=== PATIENT | female | born 1980 | race Two or more races ===

== ENCOUNTER 2018-05-26 08:18 | Outpatient (CLI) | payer OTHER | END 2018-05-26 08:28 | disposition home or self-care (01) | LOC: SONOGRAMA 08:18 | DX: K80.20 Calculus of gallbladder without cholecystitis without obstruction (principal); R10.2 Pelvic and perineal pain ==

== ENCOUNTER 2018-09-22 09:01 | Outpatient (CLI) | payer OTHER | END 2018-09-22 09:04 | disposition home or self-care (01) | LOC: MAMO-SONO 09:01 | DX: N60.11 Diffuse cystic mastopathy of right breast (principal); N60.12 Diffuse cystic mastopathy of left breast; Z80.3 Family history of malignant neoplasm of breast ==

== ENCOUNTER 2018-11-24 11:22 | Outpatient (CLI) | payer OTHER | END 2018-11-24 11:24 | disposition home or self-care (01) | LOC: SONOGRAMA 11:22 | DX: R10.9 Unspecified abdominal pain (principal) ==

== ENCOUNTER 2018-11-25 16:38 | Emergency (ER) | payer OTHER ==
[~2018-11-25] VITALS: Ht 165.1 cm; Wt 49.9 kg
== END 2018-11-26 10:50 | disposition home or self-care (01) ==
LOC: ER 16:38
DX: J18.0 Bronchopneumonia, unspecified organism (principal); R50.9 Fever, unspecified

== ENCOUNTER → 2018-12-04 08:27 | Outpatient (CLI) | payer OTHER | END | disposition home or self-care (01) | LOC: LAB 08:27 | DX: E55.9 Vitamin D deficiency, unspecified (principal); E13.29 Other specified diabetes mellitus with other diabetic kidney complication; J15.9 Unspecified bacterial pneumonia; I13.0 Hypertensive heart and chronic kidney disease with heart failure and stage 1 through stage 4 chronic kidney disease, or unspecified chronic kidney disease; E13.22 Other specified diabetes mellitus with diabetic chronic kidney disease ==

== ENCOUNTER 2022-12-11 16:16 | Inpatient (IN) | payer OTHER ==
[~2022-12-11] VITALS: Ht 170.2 cm; Wt 56.7 kg
[2022-12-11] MEDS ORDERED: LO LOESTRIN FE1 EACH PO (16:22)
--- NOTE | 2022-12-11 16:25 | NUR ---
SE RECIBE PTE FEMENINA DE 42 ANOS ALERTA Y ORIENTADA X3 QUIEN REFIER EMALESTAR GENERAL. SE MONITOREAN S/V Y SE UBICA EN FT.
--- NOTE | 2022-12-11 17:44 | NUR ---
PACIENTE EVALUADA POR DR. HILARIO QUIEN ORDENA TRATAMIENTO. SE ORIENTA PACIENTE SOBRE TRATAMIENTO, SE DIONNE MUESTRAS DE LABORATORIO BAJO MEDIDAS ASEPTICAS. SE NOTIFICA A PERSONAL DE CENTRO DE IMAGENES POR MR. GALO.
== END 2022-12-15 15:18 | disposition home or self-care (01) | DRG 194 ==
LOC: ER 16:16 → MEDJ 20:11
PROVIDERS: ADMIT Internal Medicine; ATTEND Internal Medicine
DX: J18.9 Pneumonia, unspecified organism (principal); J45.901 Unspecified asthma with (acute) exacerbation; Z20.822 Contact with and (suspected) exposure to COVID-19